=== PATIENT | female | born 1955 | race Hispanic/Latino ===

== ENCOUNTER 2016-06-20 13:00 | Inpatient (IN) | payer BC ==
[2016-06-20] MEDS ORDERED: Morphine 4 mg/ml ISec ONE ×2 (13:27→13:40)
--- NOTE | 2016-06-20 13:27 | ED PDOC ---
Arrival/HPI - General Chief Complaint: Upper Extremity Problem/Injury Time Seen by Provider: 06/20/16 13:16 Historian: Patient - History of Present Illness Narrative History of Present Illness (Text): 06/20/16 13:26 A 61 year old female, whose past medical history includes hypertension and hyperlipidemia, presents to the emergency department complaining of severe bilateral arm pain since last night. Patient reports her pain worsened this morning causing her to come in for further evaluation. Patient denies any relieving or exacerbating factors. Patient denies any fever, chills, nausea, vomiting, abdominal pain, chest pain, shortness of breath, cough or any other complaints. PMD: Dr. To Time/Duration: Other (Last night) Symptom Course: Worsening Quality: Other Context: Home Past Medical History - Provider Review Nursing Documentation Reviewed: Yes - Infectious Disease Hx of Infectious Diseases: None - Reproductive Menopause: Yes - Cardiac Hx Cardiac Disorders: Yes Hx Hypertension: Yes (BORDERLINE) - Pulmonary Hx Respiratory Disorders: Yes Hx Chronic Obstructive Pulmonary Disease (COPD): Yes Other/Comment: SMOKES CIGARETTES.STARTED SMOKING CIGARETTES SINCE 7 YRS OLD. ON CHIANTIX.STARTED 3 MONS AGO. - Neurological Hx Neurological Disorder: No - HEENT Hx HEENT Disorder: No - Renal Hx Renal Disorder: No - Endocrine/Metabolic Hx Endocrine Disorders: No - Hematological/Oncological Hx Blood Disorders: No - Integumentary Hx Dermatological Disorder: Yes (SCAR TO MID ABDOMINAL AREA FROM HERNIA SX) - Musculoskeletal/Rheumatological Hx Musculoskeletal Disorders: Yes Hx Falls: No Other/Comment: TRIGGER FINGER,PLANTAR FASCITIS - Gastrointestinal Hx Gastrointestinal Disorders: Yes Hx Diverticulitis: Yes (1-9-15) Other/Comment: HEMORRHOIDECTOMY,2 HERNIA REPAIR - Genitourinary/Gynecological Hx Genitourinary Disorders: No - Psychiatric Hx Psychophysiologic Disorder: No Hx Anxiety: No Hx Bipolar Disorder: No Hx Depression: No Hx Emotional Abuse: No Hx Hallucinations: No Hx Panic Disorder: No Hx Post Traumatic Stress Disorder: No Hx Psychosis: No Hx Physical Abuse: No Hx Schizophrenia: No Hx Sexual Abuse: No Hx Substance Use: No Other/Comment: SMOKES CIGARETTES SINCE 7 YRS OLD., ETOH SOCIALLY. - Surgical History Other/Comment: Hernia Repair.X2. - Anesthesia Hx Anesthesia: Yes Hx Anesthesia Reactions: No Hx Malignant Hyperthermia: No Family/Social History - Physician Review Nursing Documentation Reviewed: Yes Family/Social History: No Known Family HX Smoking Status: Current Some Days Smoker Hx Alcohol Use: Yes (SOCIAL DRINKER) Frequency of alcohol use: Socially Hx Substance Use: No Allergies/Home Meds Allergies/Adverse Reactions: Allergies adhesive Adverse Reaction (Verified 06/20/16 13:10) RASH hydromorphone [From Dilaudid] Adverse Reaction (Verified 06/20/16 13:10) URTICARIA Home Medications: Home Meds Medication Instructions Recorded Confirmed Varenicline [Chantix] 1 mg PO DAILY 02/23/15 06/20/16 Losartan Potassium [Cozaar] 100 mg PO DAILY 06/20/16 06/20/16 Simvastatin [Zocor] 20 mg PO HS 06/20/16 06/20/16 amLODIPine [Norvasc] 5 mg PO BID 06/20/16 06/20/16 Review of Systems - Physician Review All systems were reviewed & negative as marked: Yes - Review of Systems Constitutional: absent: Fevers, Night Sweats Respiratory: absent: SOB, Cough Cardiovascular: absent: Chest Pain Gastrointestinal: absent: Abdominal Pain, Nausea, Vomiting Musculoskeletal: Other (Bilateral arm pain) Physical Exam Vital Signs Reviewed: Yes Vital Signs Temp Pulse Pulse Resp BP BP Pulse Ox 06/20/16 13:40 97 H 20 118/77 100 06/20/16 13:30 108 H 20 123/88 100 06/20/16 13:20 98 H 20 141/98 H 100 06/20/16 13:17 109 H 173/81 H 06/20/16 13:16 100 H 18 173/81 H 100 06/20/16 13:03 98.2 F 85 20 158/115 H 99 Temperature: Afebrile Blood Pressure: Hypertensive Pulse: Regular Respiratory Rate: Normal Appearance: Positive for: Non-Toxic, Uncomfortable Pain Distress: Severe Mental Status: Positive for: Alert and Oriented X 3 - Systems Exam Head: Present: Atraumatic, Normocephalic Pupils: Present: PERRL Extroacular Muscles: Present: EOMI Conjunctiva: Present: Normal Mouth: Present: Moist Mucous Membranes Neck: Present: Normal Range of Motion Respiratory/Chest: Present: Clear to Auscultation, Good Air Exchange. No: Respiratory Distress, Accessory Muscle Use Cardiovascular: Present: Regular Rate and Rhythm, Normal S1, S2. No: Murmurs Abdomen: Present: Normal Bowel Sounds. No: Tenderness, Distention, Peritoneal Signs Back: Present: Normal Inspection Upper Extremity: Present: Normal Inspection, Normal ROM, NORMAL PULSES, Neurovascularly Intact. No: Cyanosis, Edema Lower Extremity: Present: Normal Inspection. No: Edema Neurological: Present: GCS=15, CN II-XII Intact, Speech Normal Skin: Present: Warm, Dry, Normal Color. No: Rashes Psychiatric: Present: Alert, Oriented x 3, Normal Insight, Normal Concentration Medical Decision Making ED Course and Treatment: 06/20/16 13:26 Impression: A 61 year old female with bilateral arm pain Plan: -- EKG -- Labs -- Aspirin, Plavix, Heparin and Morphine -- Reassess and disposition Progress Notes: Code heart called at 13:25 Concerning initial EKG, subsequent 12 leads revealed STEMI. Initial EKG at 13:18 shows NSR at 110 BPM. Interpreted by me. Second EKG at 13:21 shows NSR at 107 BPM with hyperacute T-waves noted in lead IV, questionable ST-segment elevations in V1-V2 Final EKG at 13:24 shows NSR at [address] elevations in V1-V4 06/20/16 13:[address] Baldwin 06/20/16 15:00 Patient transferred to orthodontic laboratory technician at 13:42. Dr. Jeong was in ED and now in orthodontic laboratory technician waiting for patient. - Critical Care Critical Care Minutes: 30 minutes - Lab Interpretations Lab Results: 06/20/16 13:32 06/20/16 13:32 Lab Results 06/20/16 13:32: Sodium 136, Potassium 4.3, Chloride 97 L, Carbon Dioxide 27, Anion Gap 16, BUN 15, Creatinine 0.8, Est GFR ( Amer) > 60, Est GFR (Non- Af Amer) > 60, Random Glucose 92, Calcium 9.4, Total Bilirubin 0.7, AST 25, ALT 33, Alkaline Phosphatase 84, Lactate Dehydrogenase 437, Total Creatine Kinase 57 , Troponin I 0.19 H* D, Total Protein 8.2, Albumin 4.5, Globulin 3.7, Albumin/ Globulin Ratio 1.2 06/20/16 13:32: PT 10.4, INR 0.96 06/20/16 13:32: WBC 13.4 H D, RBC 5.18, Hgb 17.2 H, Hct 48.6 H, MCV 93.8, MCH 33.2, MCHC 35.4, RDW 12.4, Plt Count 329, MPV 8.6, Gran % 66.9, Lymph % (Auto) 25.6, [place] % (Auto) 5.6, Eos % (Auto) 1.3 L, Baso % (Auto) 0.6, Gran # 8.97 H, Lymph # 3.4, [place] # 0.8 H, Eos # 0.2, Baso # 0.08 I have reviewed the lab results: Yes - Medication Orders Current Medication Orders: Acetaminophen (Tylenol 325mg Tab) 650 mg PO Q6H PRN PRN Reason: Fever >100.4 F Alprazolam (Xanax) 0.25 mg PO TID [facility] Stop: 06/27/16 18:01 Aspirin (Aspirin Chewable) 81 mg PO DAILY [facility] Atorvastatin Calcium (Lipitor) 80 mg PO DIN [facility] Clopidogrel Bisulfate (Plavix) 75 mg PO DAILY [facility] Docusate Sodium (Colace) 100 mg PO BID [facility] Sodium Chloride (Sodium Chloride 0.9%) 1,000 mls @ 100 mls/hr IV .Q10H [facility] Stop: 06/21/16 00:59 Losartan Potassium (Cozaar) 100 mg PO DAILY [facility] Metoprolol Tartrate (Lopressor) 25 mg PO BRKDIN [facility] Ondansetron HCl (Zofran Inj) 4 mg IVP Q6H PRN PRN Reason: Nausea/Vomiting Pantoprazole Sodium (Protonix Ec Tab) 40 mg PO 0630 [facility] Zolpidem Tartrate (Ambien) 5 mg PO HS PRN PRN Reason: Insomnia Discontinued Medications Aspirin (Aspirin) Confirm Administered Dose 325 mg .ROUTE .STK-MED ONE Stop: 06/20/16 13:28 Last Admin: 06/20/16 13:52 Dose: Aspirin (Aspirin) 325 mg PO STAT STA Stop: 06/20/16 13:27 Last Admin: 06/20/16 13:26 Dose: 325 mg Atropine Sulfate (Atropine) Confirm Administered Dose 1 mg .ROUTE .STK-MED ONE Stop: 06/20/16 13:37 Clopidogrel Bisulfate (Plavix) Confirm Administered Dose 600 mg .ROUTE .STK-MED ONE Stop: 06/20/16 13:29 Last Admin: 06/20/16 13:54 Dose: Clopidogrel Bisulfate (Plavix) 600 mg PO STAT STA Stop: 06/20/16 13:55 Last Admin: 06/20/16 13:25 Dose: 600 mg Eptifibatide (Integrilin Bolus) Confirm Administered Dose 40 mg IVP .STK-MED ONE Stop: 06/20/16 14:14 Fentanyl (Fentanyl) Confirm Administered Dose 100 mcg .ROUTE .STK-MED ONE Stop: 06/20/16 13:38 Heparin Sodium (Porcine) (Heparin) Confirm Administered Dose 5,000 units .ROUTE .STK-MED ONE Stop: 06/20/16 13:31 Last Admin: 06/20/16 13:53 Dose: Heparin Sodium (Porcine) (Heparin) 5,000 units IVP STAT STA PRN Reason: Protocol Stop: 06/20/16 13:27 Last Admin: 06/20/16 13:26 Dose: 5,000 units Heparin Sodium (Porcine) (Heparin) Confirm Administered Dose 10,000 units .ROUTE .STK-MED ONE Stop: 06/20/16 13:38 Nitroglycerin/Dextrose (Nitroglycerin 50 Mg/250 Ml D5w) Confirm Administered Dose 50 mg in 250 mls @ ud IV .STK-MED ONE Stop: 06/20/16 13:34 Last Admin: 06/20/16 13:33 Dose: 50 mg Nitroglycerin/Dextrose (Nitroglycerin 50 Mg/250 Ml D5w) Confirm Administered Dose 50 mg in 250 mls @ ud IV .STK-MED ONE Stop: 06/20/16 13:39 Last Admin: 06/20/16 14:03 Dose: Heparin Sodium (Porcine) (Heparin 1000 Units/500 Ml Ns) Confirm Administered Dose 1,500 mls @ ud IV .STK-MED ONE Stop: 06/20/16 13:39 Amiodarone HCl/Dextrose (Nexterone 360 Mg In D5w 200 Ml (Premix)) Confirm Administered Dose 360 mg in 200 mls @ ud IV .STK-MED ONE Stop: 06/20/16 14:03 Amiodarone HCl/Dextrose (Nexterone 150 Mg In Dextrose 100 Ml (Premix)) Confirm Administered Dose 150 mg in 100 mls @ ud .ROUTE .STK-MED ONE Stop: 06/20/16 14:03 Eptifibatide (Integrilin) Confirm Administered Dose 75 mg in 100 mls @ ud IV .STK-MED ONE Stop: 06/20/16 14:14 Iodixanol (Visipaque 320 Mg/Ml 100 Ml) Confirm Administered Dose 100 ml IV .STK- MED ONE Stop: 06/20/16 13:39 Iodixanol (Visipaque 320 Mg/Ml 200 Ml) Confirm Administered Dose 200 ml IV .STK- MED ONE Stop: 06/20/16 13:39 Iodixanol (Visipaque 320 Mg/Ml 100 Ml) Confirm Administered Dose 100 ml IV .STK- MED ONE Stop: 06/20/16 14:30 Iohexol (Omnipaque 350mg/Ml 50 Ml) Confirm Administered Dose 50 ml .ROUTE .STK- MED ONE Stop: 06/20/16 13:39 Lidocaine HCl (Lidocaine 2% 20ml Vial) Confirm Administered Dose 20 ml .ROUTE .STK-MED ONE Stop: 06/20/16 13:38 Midazolam HCl (Versed Inj) Confirm Administered Dose 2 mg .ROUTE .STK-MED ONE Stop: 06/20/16 13:38 Midazolam HCl (Versed Inj) Confirm Administered Dose 2 mg .ROUTE .STK-MED ONE Stop: 06/20/16 14:03 Morphine Sulfate (Morphine) Confirm Administered Dose 4 mg .ROUTE .STK-MED ONE Stop: 06/20/16 13:28 Last Admin: 06/20/16 13:57 Dose: Morphine Sulfate (Morphine) 4 mg IVP STAT STA Stop: 06/20/16 13:32 Last Admin: 06/20/16 13:31 Dose: 4 mg Morphine Sulfate (Morphine) 4 mg IVP STAT STA Stop: 06/20/16 13:40 Last Admin: 06/20/16 13:40 Dose: 4 mg Morphine Sulfate (Morphine) Confirm Administered Dose 4 mg .ROUTE .STK-MED ONE Stop: 06/20/16 13:41 Last Admin: 06/20/16 13:59 Dose: Phenylephrine HCl (Phenylephrine Inj) Confirm Administered Dose 10 mg .ROUTE .STK-MED ONE Stop: 06/20/16 13:38 - Scribe Statement The provider has reviewed the documentation as recorded by the Scribe Tri [place]antoja Provider Scribe Attestation: All medical record entries made by the Scribe were at my direction and personally dictated by me. I have reviewed the chart and agree that the record accurately reflects my personal performance of the history, physical exam, medical decision making, and the department course for this patient. I have also personally directed, reviewed, and agree with the discharge instructions and disposition. Disposition/Present on Arrival - Present on Arrival Any Indicators Present on Arrival: No History of DVT/PE: No History of Uncontrolled Diabetes: No Urinary Catheter: No History of Decub. Ulcer: No History Surgical Site Infection Following: None - Disposition Have Diagnosis and Disposition been Completed?: Yes Diagnosis: STEMI (ST elevation myocardial infarction) Disposition: HOSPITALIZED Disposition Time: 13:42 Patient Plan: Admission Condition: CRITICAL
[2016-06-20] MEDS ORDERED: Morphine 4 mg/ml ISec IVP STA ×2 (13:31→13:39)
[2016-06-20 13:33] LABS: ADD MANUAL DIFF? NO; BASO # 0.08 [, K/mm3] (0.0-2.0); BASO % 0.6 % (0.0-3.0); EOS # 0.2 (0.0-0.7); EOS % 1.3 % (1.5-5.0); GRAN # 8.97 (1.4-6.5); GRAN % 66.9 % (50.0-68.0); HEMATOCRIT 48.6 % (36.0-48.0); LYMPH # 3.4 (1.2-3.4); LYMPH % 25.6 % (22.0-35.0); MEAN CELL VOLUME 93.8 fL (80.0-105.0); MEAN CORPUSCULAR HEMOGLOBIN 33.2 pg (25.0-35.0); MEAN CORPUSCULAR HGB CONC 35.4 g/dl (31.0-37.0); MEAN PLATELET VOLUME 8.6 fl (7.0-11.0); MONO # 0.8 (0.1-0.6); MONO % 5.6 % (1.0-6.0); PLATELET COUNT 329 [, 10^3/uL] (120.0-450.0); RED CELL DISTRIBUTION WIDTH 12.4 % (11.5-14.5); WHITE BLOOD COUNT 13.4 [, 10^3/ul] (4.5-11.0)
[2016-06-20] MEDS ORDERED: Nitroglycerin 50mg in D5W 50 MG/250 ML BOTTLE IV ONE ×2 (13:33→13:38)
[2016-06-20] MEDS ORDERED: Phenylephrine 10 mg/ml Inj ONE (13:37)
[2016-06-20] MEDS ORDERED: Midazolam 2 MG/2 ML VIAL ONE ×2 (13:37→14:02)
[2016-06-20] MEDS ORDERED: Lidocaine 2% Inj (20ml) ONE (13:37)
[2016-06-20] MEDS ORDERED: Iodixanol 320 MG/ML 200 ML BOTTLE IV ONE (13:38)
[2016-06-20] MEDS ORDERED: Iodixanol 320 MG/ML 100 ML BOTTLE IV ONE ×2 (13:38→14:29)
[2016-06-20] MEDS ORDERED: Iohexol 350mgl/ml 50 ML ONE (13:38)
[2016-06-20 13:39] LABS: INR 0.96 (0.93-1.08)
[2016-06-20 13:41] LABS: ALB/GLOB RATIO 1.2 (1.1-1.8); ALKALINE PHOSPHATASE 84 U/L (38-133); ALT/SGPT 33 U/L (7-56); AST/SGOT 25 U/L (15-39); BILIRUBIN,TOTAL 0.7 mg/dL (0.2-1.3); BLOOD UREA NITROGEN 15 mg/dL (7-21); CALCIUM 9.4 mg/dL (8.4-10.5); CARBON DIOXIDE 27 mmol/L (21-33); CHLORIDE 97 mmol/L (98-107); GFR AFRICAN-AMERICAN > 60; GLUCOSE,RANDOM 92 mg/dL (70-110); POTASSIUM 4.3 mmol/L (3.6-5.0); SODIUM 136 mmol/L (132-148); TOTAL PROTEIN 8.2 g/dL (5.8-8.3)
--- NOTE | 2016-06-20 13:51 | CP.PCM.PN ---
Subjective - Date & Time of Evaluation Date of Evaluation: 06/20/16 Time of Evaluation: 13:48 - Subjective Subjective: Code Heart Responded stat to code heart in ER. Patient was noted to have an acute RI after initial treatment in the ED. She was transferred to the dental lab technician by ER team, Resident (Geri Le) and myself. Patient was already on secured entrance monitor and oxygen during the transfer. Dr. Jeong was already in the dental lab technician preparing for the procedure. Objective - Vital Signs/Intake and Output Vital Signs (last 24 hours): Temp Pulse Resp BP Pulse Ox 98.2 F 97 H 20 123/88 100 06/20/16 13:03 06/20/16 13:38 06/20/16 13:38 06/20/16 13:38 06/20/16 13:38 - Medications Medications: Current Medications Morphine Sulfate (Morphine) 4 mg IVP STAT STA Stop: 06/20/16 13:40 - Labs Labs: 06/20/16 13:32 06/20/16 13:32 PT 10.4 Seconds (9.9-11.8) 06/20/16 13:32 INR 0.96 (0.93-1.08) 06/20/16 13:32
[2016-06-20 13:54] LABS: TROPONIN I 0.19 ng/mL
[2016-06-20] MEDS ORDERED: D5W IV ONE (14:02)
[2016-06-20] MEDS ORDERED: Amiodarone 150 mg/D5W 100 ml 0 MG/0 ML BAG ONE (14:02)
[2016-06-20] MEDS ORDERED: AMIODARONE IV ONE (14:02)
[2016-06-20] MEDS ORDERED: Eptifibatide 0.75 mg/ml 75 MG/100 ML BOTTLE IV ONE (14:13)
[2016-06-20] MEDS ORDERED: Eptifibatide 20 mg/10mL Inj IVP ONE (14:13)
[2016-06-20] MEDS ORDERED: Sodium Chloride 0.9% 1,000 ML IV SCH (15:00)
--- NOTE | 2016-06-20 15:27 | CARD ---
APPROVED REPORT EKG Measurement Heart [id number] <Conclusion> Sinus tachycardia Possible Left atrial enlargement Low voltage QRS Inferior infarct, age undetermined Consider early injury patteren in the anterior leads Abnormal ECG
--- NOTE | 2016-06-20 15:30 | CARD ---
APPROVED REPORT EKG Measurement Heart [id number] <Conclusion> Sinus tachycardia Possible Left atrial enlargement Low voltage QRS Inferior infarct, age undetermined Abnormal ECG
--- NOTE | 2016-06-20 15:41 | HP ---
HISTORY OF PRESENT ILLNESS: The patient is a 61-year-old who was just seen in office with a complain t of chest pain and both shoulders, left more than the right, did not have any left-sided chest pain, but she states this is a strange kind of pain and she was literally crying in office since she has a lot of comorbidities including hyperlipidemia, hypertension, and active smoker for last 50 years, re ferred her to Emergency Room for further evaluation to rule out myocardial infarction. The patient w as seen by ER physician. She has ST elevation, code heart was called and patient was sent to cath la b. Dr. Jeong is doing the procedure. SIGNIFICANT PAST MEDICAL HISTORY: 1. Hypertension. 2. Hyperlipidemia. 3. Active smoker, almost 1-2 pack for the last 40-45 years. I have told her on multiple occasions t o quit smoking, but she states it is very hard. She was given Nicoderm patch and Nicorette gum and melody man was given Chantix. At one point, she quit but went back because she has a lot of stress with her daughter who has sick baby. The patient recently was evaluated by me because she wanted to have left hip replacement done and she came to me after many months for medical clearance. I sent her for a basic blood work that shows ve ry high cholesterol. Her total cholesterol was 236 with LDL of 143. The patient was started on Lipi tor, but she was complaining of lot of body aches and pain. She took for 3 days, Wednesday, Wednesday, . she called me, it was stopped and she was recently diagnosed with hypertension. S he was started on losartan 100 mg daily. She was evaluated by cigar head perforator who started on Norvasc. She also has history of COPD. ALLERGIES: ADHESIVES AND HYDROMORPHONE. She also has a history of diverticulosis, she has multiple admissions for diverticulitis. MEDICATIONS AT HOME: She is on losartan 100 mg daily, Zocor 20 mg at bedtime, Norvasc 5 mg twice a d ay and she has been on Chantix off and on. REVIEW OF SYSTEMS: Complaining of chest pain, bilateral shoulder and arm pain, left more than the ri ght. PHYSICAL EXAMINATION: GENERAL: The patient is awake and alert, communicative. VITAL SIGNS: She is afebrile, pulse 85, respirations 20, blood pressure 158/115. LUNGS: Bilateral fair airflow, no rhonchi or crackle. HEART: S1, S2 audible. ABDOMEN: Soft, nontender, no rebound, no guarding. NEUROLOGIC: The patient is awake and alert, communicative, ambulatory. LABORATORY DATA: WBC is 13.4, hemoglobin 17, hematocrit 48, platelet of 329. PT 10.4, INR 0.96. Ch emistry: Sodium 136, potassium 4.3, chloride 97, CO2 27, BUN 15, creatinine 0.8, blood sugar of 92, troponin 0.19. ASSESSMENT AND PLAN: 1. Acute myocardial infarction. The patient was taken to cardiac catheterization lab and still in c ath lab. 2. Hypertension. 3. Hyperlipidemia. 4. Active heavy smoker for many, many years. PLAN: The patient is will be admitted, having emergency cardiac catheterization done and she will be admitted post-procedure in ICU where she will be monitored closely. Gladys To MD cc: [id number] TT: 06/20/2016 15:40:45 jn
--- NOTE | 2016-06-20 15:52 | CON ---
DATE: 06/20/2016 REASON FOR CONSULTATION: Acute myocardial infarction. REQUESTING PHYSICIAN: Dr. To. HISTORY OF PRESENT ILLNESS: This is a 61-year-old woman with no significant past cardiac history, ho wever, a history of hypertension, hyperlipidemia and tobacco abuse who presents to the Emergency Room with severe chest discomfort and bilateral arm pain. Upon further discussion with her significant o ther, he states that she has been having symptoms like this for several weeks. In the Emergency Room , her electrocardiogram initially showed no acute abnormalities; however, follow up cardiogram showed clear ST elevations across the precordium. Emergency catheterization was recommended. She denies a ny prior cardiac history. She does have a history of hypertension and hyperlipidemia. She does have significant arthritis and has been a smoker for many years. She was recently being evaluated for po ssible hip replacement surgery. PAST MEDICAL HISTORY: Notable for the problems mentioned above. She has a history of diverticulitis in the past as well. She has had prior hernia repairs performed. MEDICATIONS AT HOME: Included Chantix, losartan 100 mg daily, amlodipine 5 mg b.i.d. and simvastatin 20 mg daily. ALLERGIES: SHE REPORTEDLY HAD A REACTION TO HYDROMORPHONE IN THE PAST. SOCIAL HISTORY: She is a smoker for many years. She denies alcohol use. FAMILY HISTORY: Both parents are from age-related illness. There is no family history of p remature heart disease. REVIEW OF SYSTEMS: Ten point review of systems is otherwise unremarkable. PHYSICAL EXAMINATION: GENERAL: She is an extremely anxious appearing, middle-aged woman. VITAL SIGNS: Blood pressure is 140/80 with a pulse of 110, respirations are 30. She is afebrile. HEENT: Normocephalic, atraumatic. NECK: Supple, no JVD noted. CHEST: Bilateral scattered rhonchi heard. HEART: PMI displaced laterally. No pathologic murmur or gallops noted. ABDOMEN: Soft, nontender, normoactive bowel sounds. EXTREMITIES: No edema. Distal pulses are 1+ bilaterally. SKIN: Warm and dry. PSYCHIATRIC: Moderate anxiety, but otherwise normal mood and affect. NEUROLOGIC: Alert and oriented x 3. No gross motor or sensory deficits appreciable. DIAGNOSTIC DATA: White count 13.4, hemoglobin and hematocrit 17.2 and 48.6 with platelet count of 32 9,000. Potassium 4.3. BUN and creatinine are 15 and 0.8. Initial troponin was 0.19. Electrocardiog dale reveals sinus rhythm with ST elevations across the precordium. Chest x-ray is pending. IMPRESSION: 1. Acute anterior myocardial infarction. 2. History of hypertension, hyperlipidemia and tobacco abuse. 3. Rest of problems as noted. RECOMMENDATIONS: The patient will be brought emergently to the catheterization lab and undergo emerg ency catheterization. Assuming a suitable lesion is found, emergency percutaneous coronary intervent ion will be performed as well. Risks and benefits have been discussed with the patient as well. The patient has been loaded with aspirin and Plavix as well as IV heparin. Further plans will be made b ased upon clinical course and results of the above findings. Thank you for this consultation. I am happy to follow along with her through her hospital course. Tomer Jeong MD cc: [id number] TT: 06/20/2016 15:51:08 Confirmation # [id number] Dictation # [id number] amanda
[2016-06-20] MEDS: Eptifibatide 0.75 mg/ml 75 MG/100 ML BOTTLE IV SCH (16:05)
--- NOTE | 2016-06-20 16:11 | CARDCATH ---
PROCEDURE DATE: 06/20/2016 HISTORY OF PRESENT ILLNESS: This is a 61-year-old woman with a history of hypertension, hyperlipidem ia and tobacco abuse who presents to the Emergency Room with bilateral arm pain and retrosternal ches t discomfort. Initial EKG was nondiagnostic; however, followup EKG with recurrent pain showed ST chava vations anteriorly. Emergency catheterization was advised. INDICATION: Acute myocardial infarction. PROCEDURES: 1. Selective left and right coronary angiography. 2. Left femoral arterial access as well as right femoral arterial access. 3. Left ventriculography. 4. PCI of mid and distal LAD with drug-eluting stents. 5. Right and left femoral arteriography. 6. Angio-Seal deployment x 2. HEMODYNAMICS: The aortic pressure was 90/60 with a left ventricular pressure 90/30. CORONARY ANATOMY: 1. The left main stem was normal. 2. Left anterior descending artery was large and tortuous. The vessel was occluded in the midportio n. 3. Left circumflex artery gave rise to 2 moderate sized obtuse marginal branches mild diffuse diseas e. 4. The right coronary artery was dominant and normal. LEFT VENTRICULOGRAPHY: A hand injection was performed in the left ventricle revealing evidence of se solitario distal anteroseptal and apical hypokinesis with overall ejection fraction of 45%. CURRENT INTERVENTION: 4000 units of intravenous heparin was administered and ACT was 300 seconds following administration. Attempts to advance the 35 EBU 6-[place] catheter up the right femoral iliac artery was not possible, despite the fact that diagnostic catheterization had passed there recently, there appeared to be ran dence of significant calcified plaque present. Access was then obtained via the right femoral artery . Following this, the catheter was successfully advanced and selectively engaged in left coronary ar ramiro. A [place] wire was taken and advanced into the LAD. This was able to pass through the occlusio n mid portion of the vessel and successfully reach the apex. Initial inflations in the mid portion w ere performed with a 2.5 mm x 12 mm balloon. Following this, there was evidence of diffuse complex 8 0% stenosis in the early distal segment of the vessel as well. This was also inflated with a 2.5 bal loon. Following this, the balloon catheter was removed and a 3.0 x 22 mm Resolute drug-eluting stent was advanced into the early distal segment of the LAD and inflated to 10 atmospheres. Following thi s, a 3.0 x 18 mm Resolute drug-eluting stent was advanced into the mid portion of the vessel and infl ated to 12 atmospheres. Following this, angiography showed evidence of a distal lesion at the edge o f the more distal stent. Intracoronary nitroglycerin was infused. However, this did not change the appearance, the wire was also withdrawn and the lesion remained. Given this, a 2.75 x 8 mm Resolute drug-eluting stent was advanced into this segment with overlap in the previously placed stent. This was inflated to 9 atmospheres. The balloon catheter was withdrawn to the overlap segment of the 2 st ents and inflated to 18 atmospheres. Following intervention 0% residual stenosis and ANNA grade III flow. IV Integrilin was administered. RIGHT FEMORAL ARTERIOGRAPHY: Right femoral arteriogram showed no evidence of significant disease and appropriate level of arterial puncture. The left femoral arteriogram was also performed showing the same. Both puncture sites were closed with deployment of an Angio-Seal device. CONCLUSION: Occluded left anterior descending with acute antral myocardial infarction. Successful s tenting of mid and early distal left anterior descending with drug-eluting stents as above. RECOMMENDATIONS: The patient will remain on IV Integrilin, be admitted to the CCU. Serial enzymes a nd electrocardiograms will be obtained. Smoking abstinence will be encouraged. Aspirin and Plavix t herapy will be administered. Beta kathy and statin therapy will be initiated as well. Further magdaleno ns will be made based upon clinical course. Tomer Jeong MD cc:Gladys To MD [id number] TT: 06/20/2016 16:10:54 jn
[2016-06-20 16:13] LABS: CHOLESTEROL 192 mg/dL (130-200)
[2016-06-20 17:13] VITALS: BMI 32.8
[2016-06-20] MEDS ORDERED: Pneumococcal 23-Valent Vaccine IM ONE (17:13)
[2016-06-20 17:34] LABS: HEMATOCRIT 44.6 % (36.0-48.0)
[2016-06-20] MEDS ORDERED: Sodium Chloride 0.9% 500 ML IV STA ×2 (18:00→18:05)
[2016-06-20] MEDS: Sodium Chloride 0.9% 1,000 ML IV SCH ×2 (18:42→22:37)
--- NOTE | 2016-06-20 19:18 | CON ---
DATE: 06/20/2016 REQUESTING PHYSICIAN: Dr. To. CHIEF COMPLAINT: The patient presented with upper extremity pain that radiated to her left arm and c hest. HISTORY OF PRESENT ILLNESS: The patient is a 61-year-old female with a history of hypertension, hype rlipidemia and COPD. The patient states that she has arthritis and has been having pain in both shou lders as well as her left hip. The patient developed left arm and chest pain today and went to her [facility] doctor, and was referred to the Emergency Room where it was noted that she was having a m yocardial infarction. The patient had a STEMI and emergently went to the metallurgical lab technician and received 2 genny nts in the LAD. At this time, she is awake and alert, hemodynamically stable. The patient is on O2 via nasal cannula. No cough, no congestion, no fever or chills, no nausea or vomiting, no abdominal pain, no diarrhea, no present chest pain. PAST MEDICAL HISTORY: As above. ALLERGIES: SHE HAS ALLERGIES TO ADHESIVE TAPE AND DILAUDID. MEDICATIONS: Can be evaluated as per the nurses' intake form. SOCIAL HISTORY: The patient smokes cigarettes. She also drinks socially, but no drug abuse. FAMILY HISTORY: Noncontributory. REVIEW OF SYSTEMS: CONSTITUTIONAL: All negative. HEENT: All negative. RESPIRATORY: All negative. CARDIOVASCULAR: Did present with some left arm and some mild chest pain. GASTROINTESTINAL: All negative. MUSCULOSKELETAL: All negative. NEUROPSYCHIATRIC: All negative. HEMATOLOGIC: All negative. IMMUNOLOGIC: All negative. ENDOCRINE: All negative. INTEGRITY: All negative. PHYSICAL EXAMINATION: VITAL SIGNS: Her temperature is 98.2, her pulse is 85, respirations are 20, and BP is 158/80, O2 sat on oxygen support is 100%. HEAD: Atraumatic, normocephalic. EYES: Reactive to light. EARS, NOSE AND THROAT: Seem to be within normal limits. NECK: Supple. No JVD, no thyroid enlargement, no lymph nodes. HEART: Regular rate and rhythm. Normal S1, S2. LUNGS: Reveal good breath sounds bilaterally. ABDOMEN: Soft, nontender, normal bowel sounds. No organomegaly noted. GENITALIA AND RECTAL: Deferred. MUSCULOSKELETAL: Note that the patient does have a hematoma in the left groin where the catheter for the cardiac catheterization was introduced. EXTREMITIES: Reveal no lower extremity edema. NEUROLOGIC: She seemed to be grossly intact. LABORATORY DATA: As far as her laboratories are concerned: Her white count is 13.4, hemoglobin 17.2 , hematocrit 48.6 with platelets of 329,000. Sodium is 136, potassium 4.3, chloride 97, CO2 of 27 wi th a BUN of 15, creatinine of 0.8, and a glucose of 92. IMPRESSION: This patient has acute myocardial infarction; it seems to be an anterior wall and is sta tus post cardiac catheterization with the placement of 2 left anterior descending stents. The patien t has a history of hypertension, hyperlipidemia, and chronic obstructive pulmonary disease as well as arthritis. Also, it is noted that she has a hematoma in the left groin area. PLAN: We will continue with aspirin and Colace, as well as Cozaar, Lipitor and Lopressor. The patie nt will be getting a Nicoderm patch and will continue with Plavix and Protonix. She is on O2 via lorna al cannula. Will continue with aggressive pulmonary toilet and we will follow her hemoglobin closely . The patient will be followed by cardiology closely as well, and we will continue to treat moreno vigil along with the other consultants and the primary care doctor. Leif Medrano MD cc: [id number] TT: 06/20/2016 19:17:18 Confirmation # [id number] Dictation # [id number] karen
[2016-06-20] MEDS ORDERED: Morphine 2 mg/ml ISec IVP STA (20:30)
[2016-06-20 22:08] LABS: TROPONIN I 2.1 ng/mL
[2016-06-21] MEDS: Eptifibatide 0.75 mg/ml 75 MG/100 ML BOTTLE IV SCH (00:21)
[2016-06-21 00:36] LABS: ADD MANUAL DIFF? NO
[2016-06-21 00:39] LABS: BASO # 0.06 [, K/mm3] (0.0-2.0); BASO % 0.4 % (0.0-3.0); EOS # 0.1 (0.0-0.7); EOS % 0.6 % (1.5-5.0); GRAN # 11.27 (1.4-6.5); GRAN % 74.9 % (50.0-68.0); LYMPH # 2.7 (1.2-3.4); LYMPH % 18.2 % (22.0-35.0); MEAN CELL VOLUME 94.5 fL (80.0-105.0); MEAN CORPUSCULAR HEMOGLOBIN 32.6 pg (25.0-35.0); MEAN CORPUSCULAR HGB CONC 34.5 g/dl (31.0-37.0); MEAN PLATELET VOLUME 8.5 fl (7.0-11.0); MONO # 0.9 (0.1-0.6); MONO % 5.9 % (1.0-6.0); PLATELET COUNT 255 [, 10^3/uL] (120.0-450.0); RED CELL DISTRIBUTION WIDTH 12.4 % (11.5-14.5)
[2016-06-21] MEDS: Morphine 2 mg/ml ISec IVP PRN (02:50)
[2016-06-21 03:33] LABS: ADD MANUAL DIFF? NO
[2016-06-21 03:38] LABS: BASO # 0.05 [, K/mm3] (0.0-2.0); BASO % 0.4 % (0.0-3.0); EOS # 0.2 (0.0-0.7); EOS % 1.3 % (1.5-5.0); GRAN # 8.76 (1.4-6.5); GRAN % 74.9 % (50.0-68.0); HEMATOCRIT 38.3 % (36.0-48.0); LYMPH # 2.1 (1.2-3.4); LYMPH % 17.9 % (22.0-35.0); MEAN CELL VOLUME 95.3 fL (80.0-105.0); MEAN CORPUSCULAR HEMOGLOBIN 33.3 pg (25.0-35.0); MEAN PLATELET VOLUME 8.5 fl (7.0-11.0); MONO # 0.6 (0.1-0.6); MONO % 5.5 % (1.0-6.0); PLATELET COUNT 250 [, 10^3/uL] (120.0-450.0); RED CELL DISTRIBUTION WIDTH 12.5 % (11.5-14.5); WHITE BLOOD COUNT 11.7 [, 10^3/ul] (4.5-11.0)
[2016-06-21 03:53] LABS: BLOOD UREA NITROGEN 11 mg/dL (7-21); CALCIUM 7.9 mg/dL (8.4-10.5); CARBON DIOXIDE 27 mmol/L (21-33); CHLORIDE 103 mmol/L (98-107); GFR AFRICAN-AMERICAN > 60; GLUCOSE,RANDOM 88 mg/dL (70-110); POTASSIUM 3.9 mmol/L (3.6-5.0); SODIUM 135 mmol/L (132-148)
[2016-06-21 04:20] LABS: TROPONIN I 2.04 ng/mL
[2016-06-21] MEDS ORDERED: Pantoprazole 40 mg EC Tab PO SCH (06:30)
--- NOTE | 2016-06-21 07:20 | CT ---
PROCEDURE: CT Abdomen and Pelvis without intravenous contrast HISTORY: r/o retro bleed COMPARISON: None. TECHNIQUE: Technique. Contrast Dose: Radiation dose: Total exam DLP = 1217 mGy-cm. This CT exam was performed using one or more of the following dose reduction techniques: Automated exposure control, adjustment of the mA and/or kV according to patient size, and/or use of iterative reconstruction technique. FINDINGS: LOWER THORAX: Minimal bibasilar subpleural atelectatic change. LIVER: Unremarkable. No gross lesion or ductal dilatation. GALLBLADDER AND BILE DUCTS: Vicarious excretion of contrast in the gallbladder suggested. PANCREAS: Unremarkable. No gross lesion or ductal dilatation. SPLEEN: Unremarkable. ADRENALS: Unremarkable. No mass. KIDNEYS AND URETERS: Left renal cysts measuring up to 5 centimeters. VASCULATURE: Unremarkable. No aortic aneurysm. BOWEL: Colonic diverticulosis without obstruction. APPENDIX: Unremarkable. Normal appendix. PERITONEUM: Unremarkable. No free fluid. No free air. LYMPH NODES: Unremarkable. No enlarged lymph nodes. BLADDER: Unremarkable. REPRODUCTIVE: Unremarkable. BONES: No acute fracture. OTHER FINDINGS: Extensive infiltration in the left groin likely secondary to recent catheterization. This probably represents subcutaneous fat hemorrhage. IMPRESSION: Extensive edema and infiltration in the left groin likely related to hemorrhage/hematoma from prior catheterization.
[2016-06-21] MEDS ORDERED: Metoprolol Succinate 25 mg XL Tab PO SCH (08:00)
--- NOTE | 2016-06-21 08:17 | PN ---
DATE: 06/21/2016 SUBJECTIVE: The patient is resting in bed, still complains of lower back pain and left thigh and mohsen in pain. The patient was fairly hemodynamically stable during the night, is off all pressors, O2 via nasal cannula and good O2 saturation. No chest pain. No nausea, vomiting. No diarrhea, no abdomin al pain. No cough, wheezing or congestion. PHYSICAL EXAMINATION: VITAL SIGNS: Her temperature is 98.3, pulse is 80, respirations are 18, and BP is 114/70. SKIN: Warm and dry. HEAD: Atraumatic, normocephalic. EYES: Reactive to light. EARS, NOSE AND THROAT: Seem to be within normal limits. NECK: Supple. No JVD, no thyroid enlargement, no lymph nodes. HEART: Has a regular rate and rhythm. Normal S1, S2. LUNGS: Reveal good breath sounds, but mildly decreased at the bases. ABDOMEN: Soft. Decreased bowel sounds. No organomegaly noted. GENITALIA AND RECTAL: Deferred. MUSCULOSKELETAL: The patient has a hematoma and swelling in the left thigh and hip area. Lower extr emities, no edema. NEUROLOGIC: She seemed to be grossly intact. LABORATORIES: Her white count is 11.7, hemoglobin is 13.4, hematocrit 38.3 with platelets of 250,000 . Sodium is 135, potassium 3.9, chloride 103, CO2 of 27 with a BUN of 11, creatinine of 0.7, and a g lucose of 88. A troponin this morning is 2.04. CT scan of the pelvis revealed that there is extensive edema and infiltrate in the left groin, likely related to hemorrhage/hematoma from prior catheterization. IMPRESSION: The patient has acute myocardial infarction, anterior wall and status post catheterizati on with 2 stents placed. The patient has a history of hypertension, hyperlipidemia, chronic obstruct betsy pulmonary disease, also arthritis. She has hematoma in the left groin area. PLAN: We will continue with O2 via nasal cannula. The patient is on IV fluids. We are monitoring t he patient's blood pressure and other vitals closely. We will continue to follow recommendations fro m cardiology and continue with her Colace, her Cozaar, Lipitor and Lopressor as well as the Plavix an d the Protonix. She is getting aggressive pulmonary toilet and we are following the hemoglobin close ly. Leif Medrano MD cc: [id number] TT: 06/21/2016 08:16:42 Confirmation # [id number] Dictation # [id number] en
[2016-06-21 08:35] LABS: ADD MANUAL DIFF? NO
[2016-06-21] MEDS: Pantoprazole 40 mg EC Tab PO SCH (09:36)
[2016-06-21] MEDS: Sodium Chloride 0.9% 1,000 ML IV SCH (09:38)
[2016-06-21 09:44] LABS: BASO # 0.04 [, K/mm3] (0.0-2.0); BASO % 0.3 % (0.0-3.0); EOS # 0.1 (0.0-0.7); EOS % 0.9 % (1.5-5.0); GRAN # 12.73 (1.4-6.5); HEMATOCRIT 41.4 % (36.0-48.0); LYMPH # 1.7 (1.2-3.4); MEAN CELL VOLUME 95.6 fL (80.0-105.0); MEAN CORPUSCULAR HEMOGLOBIN 32.6 pg (25.0-35.0); MEAN CORPUSCULAR HGB CONC 34.1 g/dl (31.0-37.0); MEAN PLATELET VOLUME 8.9 fl (7.0-11.0); MONO # 0.7 (0.1-0.6); MONO % 4.8 % (1.0-6.0); PLATELET COUNT 266 [, 10^3/uL] (120.0-450.0); RED CELL DISTRIBUTION WIDTH 12.5 % (11.5-14.5); WHITE BLOOD COUNT 15.3 [, 10^3/ul] (4.5-11.0)
[2016-06-21 09:51] LABS: PHOSPHOROUS 3.1 mg/dL (2.5-4.5)
--- NOTE | 2016-06-21 09:57 | PN ---
DATE: 06/21/2016 SUBJECTIVE: The patient is seen lying in bed in the ICU. She has had no further chest or arm discom fort. She does have pain and tenderness at her femoral access site on the left. A large hematoma is present. Her hemoglobin has remained stable, and CT of the abdomen showed no evidence of retroperit [place] hematoma. She was found to have several large cysts in her left kidney measuring up to 5 cm in diameter. She did have transient hypotension last evening, which improved with IV fluids. CURRENT MEDICATIONS: Include aspirin, Plavix, losartan 100 mg daily, Lipitor 80 mg daily, metoprolol 25 mg b.i.d., morphine p.r.n., Nicoderm patch, Protonix, Xanax p.r.n. OBJECTIVE: GENERAL: She is an anxious-appearing middle-aged woman. VITAL SIGNS: Her blood pressure is 132/86 with a pulse of 100. Respirations are 16. She is afebril e. HEENT: No JVD. CHEST: Bilateral scattered rhonchi heard. HEART: PMI displaced laterally with no pathologic murmur or gallops noted at the present time. ABDOMEN: Soft, nontender with normoactive bowel sounds. EXTREMITIES: A large soft hematoma is noted on the right thigh and an inguinal region. No bruit is heard. Right femoral access site has minimal ecchymosis. Distal pulses are intact. DIAGNOSTIC DATA: BUN and creatinine are 11 and 0.7. Potassium is 3.9. Peak troponin is 2.10. Whit e count 11.7, hemoglobin and hematocrit 13.4 and 38.3 with a platelet count of 250,000. Abdominal CT report as noted. Electrocardiogram is pending. Chest x-ray is pending as well. IMPRESSION: 1. Hemodynamically stable status post recent acute antral myocardial infarction treated with percuta neous coronary intervention of left anterior descending. 2. Transient hypotension last evening, improved with IV fluids. 3. Large left renal cyst needs evaluation. 4. History of tobacco abuse. 5. History of hypertension, hyperlipidemia. 6. Severe hip arthritis. RECOMMENDATIONS: 1. Analgesia therapy should continue. Aspirin, Plavix, beta-kathy, and angiotensin receptor block er will be continued, as blood pressure allows. 2. Followup enzymes will be planned. 3. Abdominal ultrasound should be performed for further evaluation of her renal cysts. The patient will be gotten out of bed as tolerated. An echocardiogram is pending and will be checked. We will c amaris to follow along and make further recommendations as appropriate. Tomer Jeong MD cc: [id number] TT: 06/21/2016 09:57:03 Confirmation # [id number] Dictation # [id number] jn
[2016-06-21 10:09] LABS: TROPONIN I 1.33 ng/mL
--- NOTE | 2016-06-21 10:53 | RAD ---
HISTORY: [place] COMPARISON: No prior. FINDINGS: LUNGS: No active pulmonary disease. PLEURA: No significant pleural effusion identified, no pneumothorax apparent. CARDIOVASCULAR: Normal. OSSEOUS STRUCTURES: No significant abnormalities. VISUALIZED UPPER ABDOMEN: Normal. OTHER FINDINGS: None. IMPRESSION: No active disease.
--- NOTE | 2016-06-21 12:45 | CP.CCUPN ---
CCU Subjective - Physician Review Subjective (Free Text): 06/21/16 12:24 Patient seen and examined at bedside. Today is hospital day 2. Overnight, patient experienced a brief hypotensive episode to the 60's systolic which was resolved with a 500cc bolus of NS. Pressures have remained stable since. Was found to have a retroperitoneal hematoma on the left consistent with hematoma 2/ 2 cath procedure (cannulated on the left due to impeded access on the right) on CT abd/pelvis after the hypotensive episode. This AM, patient is awake and alert, not complaining of new or worsening pain. No progression of L groin hematoma or new incidence of hematoma, no lightheadedness/dizziness, no syncope- near/syncope, no new chest pain, and no shortness of breath. CCU Objective - Vital Signs / Intake & Output Vital Signs (Last 4 hours): Vital Signs Pulse BP 06/21/16 09:40 99 H 131/97 H Intake and Output (Last 8hrs): Intake & Output 06/20/16 06/21/16 06/21/16 22:59 06:59 14:59 Intake Total 982 2130 Output Total 300 950 Balance 682 1180 Weight 78.925 kg 85.366 kg Intake: IV 982 1500 Right Antecubital 0 Right Forearm 973 Right Hand 1500 Oral 630 Tube Feeding 0 TPN/PPN 0 Blood Product 0 Lipid 0 Albumin 0 Other 0 Output: Urine 300 950 Urine, Voided 300 950 Stool 0 Urine/Stool Mix 0 Emesis 0 Oral Regurgitation 0 Other 0 Other: Voiding Method Bedpan # Voids Urine, Voided 0 # Bowel Movements 0 - Medications Active Medications: Active Medications Generic Name Dose Route Start Last Admin Trade Name Freq PRN Reason Stop Dose Admin Acetaminophen 650 mg 06/20/16 17:29 06/20/16 22:35 Tylenol 325mg Tab PO 650 mg Q6H PRN Administration Fever >100.4 F Alprazolam 0.25 mg 06/20/16 18:00 06/21/16 09:36 Xanax PO 06/27/16 18:01 0.25 mg TID CECILE Administration Aspirin 81 mg 06/21/16 10:00 06/21/16 09:36 Aspirin Chewable PO 81 mg DAILY CECILE Administration Atorvastatin Calcium 80 mg 06/20/16 18:00 06/20/16 18:36 Lipitor PO Not Given DIN CECILE Clopidogrel Bisulfate 75 mg 06/21/16 10:00 06/21/16 09:34 Plavix PO 75 mg DAILY CECILE Administration Docusate Sodium 100 mg 06/20/16 18:00 06/21/16 09:37 Colace PO 100 mg BID CECILE Administration Norepinephrine Bitartrate 4 mg 254 mls @ 15.24 mls/hr 06/20/16 18:07 19:27 / Sodium Chloride IV 0 mcg/min .[id number] PRN 0 mls/hr TITRATE PER MD ORDER Titration Protocol 4 MCG/MIN Sodium Chloride 1,000 mls @ 125 mls/hr 06/20/16 18:30 06/21/16 09:38 Sodium Chloride 0.9% IV 125 mls/hr .Q8H CECILE Administration Losartan Potassium 100 mg 06/21/16 10:00 06/21/16 09:34 Cozaar PO 100 mg DAILY CECILE Administration Metoprolol Tartrate 50 mg 06/21/16 09:13 06/21/16 09:40 Lopressor PO 50 mg BRKDIN CECILE Administration Morphine Sulfate 2 mg 06/21/16 02:38 06/21/16 02:50 Morphine IVP 2 mg Q4H PRN Administration Pain, severe (8-10) Nicotine 1 patch 06/20/16 16:45 06/21/16 09:36 Nicoderm Cq TD 1 patch DAILY CECILE Administration Ondansetron HCl 4 mg 06/20/16 17:29 Zofran Inj IVP Q6H PRN Nausea/Vomiting Pantoprazole Sodium 40 mg 06/21/16 06:30 06/21/16 09:36 Protonix Ec Tab PO 40 mg 0630 CECILE Administration Zolpidem Tartrate 5 mg 06/20/16 22:42 Ambien PO HS PRN Insomnia - Patient Studies Lab Studies: Lab Studies 06/21/16 06/21/16 06/21/16 Range/Units 08:33 08:33 03:30 WBC 15.3 H D 11.7 H D (4.5-11.0) 10^3/ul RBC 4.33 4.02 (3.5-6.1) 10^6/uL Hgb 14.1 13.4 (12.0-16.0) gm/dL Hct 41.4 38.3 (36.0-48.0) % MCV 95.6 95.3 (80.0-105.0) fL MCH 32.6 33.3 (25.0-35.0) pg MCHC 34.1 35.0 (31.0-37.0) g/dl RDW 12.5 12.5 (11.5-14.5) % Plt Count 266 250 (120.0-450.0) 10^3/uL MPV 8.9 8.5 (7.0-11.0) fl Gran % 83.0 H 74.9 H (50.0-68.0) % Lymph % (Auto) 11.0 L 17.9 L (22.0-35.0) % Dewey % (Auto) 4.8 5.5 (1.0-6.0) % Eos % (Auto) 0.9 L 1.3 L (1.5-5.0) % Baso % (Auto) 0.3 0.4 (0.0-3.0) % Gran # 12.73 H 8.76 H (1.4-6.5) Lymph # 1.7 2.1 (1.2-3.4) Dewey # 0.7 H 0.6 (0.1-0.6) Eos # 0.1 0.2 (0.0-0.7) Baso # 0.04 0.05 (0.0-2.0) K/mm3 Sodium (132-148) mmol/L Potassium (3.6-5.0) mmol/L Chloride (98-107) mmol/L Carbon Dioxide (21-33) mmol/L Anion Gap (10-20) BUN (7-21) mg/dL Creatinine (0.5-1.4) mg/dL Est GFR ( Amer) Est GFR (Non-Af Amer) Random Glucose (70-110) mg/dL Calcium (8.4-10.5) mg/dL Phosphorus 3.1 (2.5-4.5) mg/dL Magnesium 2.0 (1.7-2.2) mg/dL Lactate Dehydrogenase 483 (333-699) U/L Total Creatine Kinase 104 (35-230) U/L Troponin I 1.33 H* D ng/mL Albumin 3.5 (3.0-4.8) g/dL Blood Type Blood Type Confirm Antibody Screen Crossmatch BBK History Checked 06/21/16 06/21/16 06/20/16 Range/Units 03:30 00:30 21:30 WBC 15.0 H (4.5-11.0) 10^3/ul RBC 4.02 (3.5-6.1) 10^6/uL Hgb 13.1 (12.0-16.0) gm/dL Hct 38.0 (36.0-48.0) % MCV 94.5 (80.0-105.0) fL MCH 32.6 (25.0-35.0) pg MCHC 34.5 (31.0-37.0) g/dl RDW 12.4 (11.5-14.5) % Plt Count 255 (120.0-450.0) 10^3/uL MPV 8.5 (7.0-11.0) fl Gran % 74.9 H (50.0-68.0) % Lymph % (Auto) 18.2 L (22.0-35.0) % Dewey % (Auto) 5.9 (1.0-6.0) % Eos % (Auto) 0.6 L (1.5-5.0) % Baso % (Auto) 0.4 (0.0-3.0) % Gran # 11.27 H (1.4-6.5) Lymph # 2.7 (1.2-3.4) Dewey # 0.9 H (0.1-0.6) Eos # 0.1 (0.0-0.7) Baso # 0.06 (0.0-2.0) K/mm3 Sodium 135 (132-148) mmol/L Potassium 3.9 (3.6-5.0) mmol/L Chloride 103 (98-107) mmol/L Carbon Dioxide 27 (21-33) mmol/L Anion Gap 9 L (10-20) BUN 11 (7-21) mg/dL Creatinine 0.7 (0.5-1.4) mg/dL Est GFR ( Amer) > 60 Est GFR (Non-Af Amer) > 60 Random Glucose 88 (70-110) mg/dL Calcium 7.9 L (8.4-10.5) mg/dL Phosphorus (2.5-4.5) mg/dL Magnesium (1.7-2.2) mg/dL Lactate Dehydrogenase 375 369 (333-699) U/L Total Creatine Kinase 124 96 (35-230) U/L Troponin I 2.04 H* 2.10 H* D ng/mL Albumin (3.0-4.8) g/dL Blood Type Blood Type Confirm Antibody Screen Crossmatch BBK History Checked 06/20/16 06/20/16 06/20/16 Range/Units 18:28 18:00 18:00 WBC (4.5-11.0) 10^3/ul RBC (3.5-6.1) 10^6/uL Hgb (12.0-16.0) gm/dL Hct (36.0-48.0) % MCV (80.0-105.0) fL MCH (25.0-35.0) pg MCHC (31.0-37.0) g/dl RDW (11.5-14.5) % Plt Count (120.0-450.0) 10^3/uL MPV (7.0-11.0) fl Gran % (50.0-68.0) % Lymph % (Auto) (22.0-35.0) % Dewey % (Auto) (1.0-6.0) % Eos % (Auto) (1.5-5.0) % Baso % (Auto) (0.0-3.0) % Gran # (1.4-6.5) Lymph # (1.2-3.4) Dewey # (0.1-0.6) Eos # (0.0-0.7) Baso # (0.0-2.0) K/mm3 Sodium (132-148) mmol/L Potassium (3.6-5.0) mmol/L Chloride (98-107) mmol/L Carbon Dioxide (21-33) mmol/L Anion Gap (10-20) BUN (7-21) mg/dL Creatinine (0.5-1.4) mg/dL Est GFR ( Amer) Est GFR (Non-Af Amer) Random Glucose (70-110) mg/dL Calcium (8.4-10.5) mg/dL Phosphorus (2.5-4.5) mg/dL Magnesium (1.7-2.2) mg/dL Lactate Dehydrogenase (333-699) U/L Total Creatine Kinase (35-230) U/L Troponin I 1.10 H* D ng/mL Albumin (3.0-4.8) g/dL Blood Type O POSITIVE Blood Type Confirm O POSITIVE Antibody Screen Negative Crossmatch See Detail BBK History Checked No verified bt 06/20/16 Range/Units 17:10 WBC (4.5-11.0) 10^3/ul RBC (3.5-6.1) 10^6/uL Hgb 15.5 (12.0-16.0) gm/dL Hct 44.6 (36.0-48.0) % MCV (80.0-105.0) fL MCH (25.0-35.0) pg MCHC (31.0-37.0) g/dl RDW (11.5-14.5) % Plt Count (120.0-450.0) 10^3/uL MPV (7.0-11.0) fl Gran % (50.0-68.0) % Lymph % (Auto) (22.0-35.0) % Dewey % (Auto) (1.0-6.0) % Eos % (Auto) (1.5-5.0) % Baso % (Auto) (0.0-3.0) % Gran # (1.4-6.5) Lymph # (1.2-3.4) Dewey # (0.1-0.6) Eos # (0.0-0.7) Baso # (0.0-2.0) K/mm3 Sodium (132-148) mmol/L Potassium (3.6-5.0) mmol/L Chloride (98-107) mmol/L Carbon Dioxide (21-33) mmol/L Anion Gap (10-20) BUN (7-21) mg/dL Creatinine (0.5-1.4) mg/dL Est GFR ( Amer) Est GFR (Non-Af Amer) Random Glucose (70-110) mg/dL Calcium (8.4-10.5) mg/dL Phosphorus (2.5-4.5) mg/dL Magnesium (1.7-2.2) mg/dL Lactate Dehydrogenase (333-699) U/L Total Creatine Kinase (35-230) U/L Troponin I ng/mL Albumin (3.0-4.8) g/dL Blood Type Blood Type Confirm Antibody Screen Crossmatch BBK History Checked Laboratory Results - last 24 hr 06/20/16 06/20/16 06/20/16 17:10 18:00 18:00 WBC RBC Hgb 15.5 Hct 44.6 MCV MCH MCHC RDW Plt Count MPV Gran % Lymph % (Auto) Dewey % (Auto) Eos % (Auto) Baso % (Auto) Gran # Lymph # Dewey # Eos # Baso # Sodium Potassium Chloride Carbon Dioxide Anion Gap BUN Creatinine Est GFR ( Amer) Est GFR (Non-Af Amer) Random Glucose Calcium Phosphorus Magnesium Lactate Dehydrogenase Total Creatine Kinase Troponin I 1.10 H* D Albumin Blood Type O POSITIVE Blood Type Confirm Antibody Screen Negative Crossmatch See Detail BBK History Checked No verified bt 06/20/16 06/20/16 06/21/16 18:28 21:30 00:30 WBC 15.0 H RBC 4.02 Hgb 13.1 Hct 38.0 MCV 94.5 MCH 32.6 MCHC 34.5 RDW 12.4 Plt Count 255 MPV 8.5 Gran % 74.9 H Lymph % (Auto) 18.2 L Dewey % (Auto) 5.9 Eos % (Auto) 0.6 L Baso % (Auto) 0.4 Gran # 11.27 H Lymph # 2.7 Dewey # 0.9 H Eos # 0.1 Baso # 0.06 Sodium Potassium Chloride Carbon Dioxide Anion Gap BUN Creatinine Est GFR ( Amer) Est GFR (Non-Af Amer) Random Glucose Calcium Phosphorus Magnesium Lactate Dehydrogenase 369 Total Creatine Kinase 96 Troponin I 2.10 H* D Albumin Blood Type Blood Type Confirm O POSITIVE Antibody Screen Crossmatch BBK History Checked 06/21/16 06/21/16 06/21/16 03:30 03:30 08:33 WBC 11.7 H D 15.3 H D RBC 4.02 4.33 Hgb 13.4 14.1 Hct 38.3 41.4 MCV 95.3 95.6 MCH 33.3 32.6 MCHC 35.0 34.1 RDW 12.5 12.5 Plt Count 250 266 MPV 8.5 8.9 Gran % 74.9 H 83.0 H Lymph % (Auto) 17.9 L 11.0 L Dewey % (Auto) 5.5 4.8 Eos % (Auto) 1.3 L 0.9 L Baso % (Auto) 0.4 0.3 Gran # 8.76 H 12.73 H Lymph # 2.1 1.7 Dewey # 0.6 0.7 H Eos # 0.2 0.1 Baso # 0.05 0.04 Sodium 135 Potassium 3.9 Chloride 103 Carbon Dioxide 27 Anion Gap 9 L BUN 11 Creatinine 0.7 Est GFR ( Amer) > 60 Est GFR (Non-Af Amer) > 60 Random Glucose 88 Calcium 7.9 L Phosphorus Magnesium Lactate Dehydrogenase 375 Total Creatine Kinase 124 Troponin I 2.04 H* Albumin Blood Type Blood Type Confirm Antibody Screen Crossmatch BBK History Checked 06/21/16 08:33 WBC RBC Hgb Hct MCV MCH MCHC RDW Plt Count MPV Gran % Lymph % (Auto) Dewey % (Auto) Eos % (Auto) Baso % (Auto) Gran # Lymph # Dewey # Eos # Baso # Sodium Potassium Chloride Carbon Dioxide Anion Gap BUN Creatinine Est GFR ( Amer) Est GFR (Non-Af Amer) Random Glucose Calcium Phosphorus 3.1 Magnesium 2.0 Lactate Dehydrogenase 483 Total Creatine Kinase 104 Troponin I 1.33 H* D Albumin 3.5 Blood Type Blood Type Confirm Antibody Screen Crossmatch BBK History Checked Assessment/Plan - Assessment and Plan (Free Text) Assessment: This is a 61 yo F with PMH of HTN, HLD, diverticulitis, and active tobacco abuse who was admitted to the ICU for STEMI s/p Cardiac cath complicated by post-cath retroperitoneal hematoma. Plan: Neuro: -awake and alert -follows commands appropriately, moving limbs spontaneously -maintain normothermia -Xanax for anxiety Pulm: -Satting well on room air -heavy tobacco use prior, so likely emphysema vs COPD component; Nicotene patch -maintain SaO2 > 88%, paO2 > 60 -Conservative O2 management -Aspiration precautions Cardio: -STEMI s/p cardiac cath, 3 LAD stents placed -obstructed access on R groin, access gained via L groin, post-procedure hematoma (resolved) and retroperitoneal hematoma noted, confirmed on CT scan -US to rule out pseudoaneurysm? -Hgb stable on q4 checks, retains pulses in bilateral LE -Continue ASA, Plavix, Metoprolol, Lipitor -Maintain MAP > 65, hemodynamically stable off pressors so holding Levophed at this time -Cardio following, appreciate all recs -Trops downtrending x2 (2.10 to 2.04 to 1.33) GI: -Consistent Carb heart healthy -Protonix for GI ppx Renal: -Making clear yellow urine -Cr 0.7 -maintain euvolemia and euglycemia (BG 140-180) -Monitor and replete electrolytes as needed -avoid nephrotoxic drugs where feasible -Abd US to assess renal cysts noted on CT Heme: -Hgb stable at 13-14 on q4 checks -No active bleeding noted at either cath sites -Retroperitoneal hematoma confirmed on Abd/Pelvis CT, continue to assess sites and peripheral pulses ID: -WBCs 15.3 to 13.7 -afebrile -continue to monitor -No abx indicated at this time Dispo: ICU, pending reassessment of retroperitoneal hematoma FEN: Consistent Carb heart healthy, NS at 125cc/hr Access: Peripheral IV Consults: Cardio Ppx: Protonix for GI, holding AC in the setting of retroperitoneal bleed
[2016-06-21 13:02] LABS: ADD MANUAL DIFF? NO
[2016-06-21 13:06] LABS: BASO # 0.03 [, K/mm3] (0.0-2.0); BASO % 0.2 % (0.0-3.0); EOS # 0.1 (0.0-0.7); GRAN # 10.76 (1.4-6.5); GRAN % 78.7 % (50.0-68.0); HEMATOCRIT 40.2 % (36.0-48.0); LYMPH % 14.8 % (22.0-35.0); MEAN CELL VOLUME 96.2 fL (80.0-105.0); MEAN CORPUSCULAR HEMOGLOBIN 32.5 pg (25.0-35.0); MEAN CORPUSCULAR HGB CONC 33.8 g/dl (31.0-37.0); MEAN PLATELET VOLUME 8.5 fl (7.0-11.0); MONO # 0.7 (0.1-0.6); MONO % 5.3 % (1.0-6.0); PLATELET COUNT 278 [, 10^3/uL] (120.0-450.0); RED CELL DISTRIBUTION WIDTH 12.7 % (11.5-14.5); WHITE BLOOD COUNT 13.7 [, 10^3/ul] (4.5-11.0)
--- NOTE | 2016-06-21 14:54 | CARD ---
APPROVED REPORT EKG Measurement Heart [id number] [place] 136P64 [id number] <Conclusion> Sinus rhythm with premature atrial complexes Otherwise normal ECG
--- NOTE | 2016-06-21 14:59 | CARD ---
APPROVED REPORT EKG Measurement Heart [id number] [place] [id number] [id number] <Conclusion> Sinus rhythm with occasional premature ventricular complexes Possible Left atrial enlargement Low voltage QRS Possible Inferior infarct, age undetermined Anterior injury pattern ACUTE PR Abnormal ECG
--- NOTE | 2016-06-21 15:45 | PN ---
DATE: 06/21/2016 The patient is 61 years old who was seen in the office yesterday with chest pain, so she was referred to the Emergency Room. Code stroke was called. The patient was taken to the center medical and lab director. She ended u p having 3 stents in the LAD and admitted in the ICU. Her cath was complicated by left leg hematoma. PHYSICAL EXAMINATION: GENERAL: She is awake and alert, communicative. VITAL SIGNS: She is afebrile. Pulse 88, respirations 19, blood pressure 140/60. LUNGS: Bilateral good airflow, no , rhonchi or crackle. HEART: S1, S2 audible. No murmur. ABDOMEN: Soft, nontender. No hepatosplenomegaly. NEUROLOGIC: She is awake and alert, communicative. EXTREMITIES: She has a hematoma in the left groin. ASSESSMENT: 1. Acute myocardial infarction, status post cardiac code heart. 2. Hypertension. 3. Hyperlipidemia. 4. Active smoker. 5. History of chronic obstructive pulmonary disease. PLAN: Currently, the patient is on aspirin 81 daily. She is on losartan. She is on Lipitor and met oprolol. She is getting nicotine. She is on Plavix and will continue that. She will have a Doppler done, and she will have Doppler done in the a.m. to rule out pseudoaneurysm, then she will be transf erred to the floor in the a.m. Gladys To MD cc: [phone] TT: 06/21/2016 15:44:38 Confirmation # [id number] Dictation # [id number] karen
[2016-06-21 16:35] LABS: ADD MANUAL DIFF? NO
[2016-06-21 17:14] LABS: TROPONIN I 0.93 ng/mL
[2016-06-21 17:21] LABS: BASO # 0.04 [, K/mm3] (0.0-2.0); BASO % 0.3 % (0.0-3.0); EOS # 0.2 (0.0-0.7); EOS % 1.1 % (1.5-5.0); GRAN # 10.12 (1.4-6.5); GRAN % 73.4 % (50.0-68.0); HEMATOCRIT 38.7 % (36.0-48.0); LYMPH # 2.6 (1.2-3.4); LYMPH % 18.6 % (22.0-35.0); MEAN CELL VOLUME 95.3 fL (80.0-105.0); MEAN CORPUSCULAR HEMOGLOBIN 32.3 pg (25.0-35.0); MEAN CORPUSCULAR HGB CONC 33.9 g/dl (31.0-37.0); MEAN PLATELET VOLUME 9.1 fl (7.0-11.0); MONO # 0.9 (0.1-0.6); MONO % 6.6 % (1.0-6.0); PLATELET COUNT 301 [, 10^3/uL] (120.0-450.0); RED CELL DISTRIBUTION WIDTH 12.6 % (11.5-14.5); WHITE BLOOD COUNT 13.8 [, 10^3/ul] (4.5-11.0)
[2016-06-22] MEDS: Morphine 2 mg/ml ISec IVP PRN ×2 (04:08→19:39)
[2016-06-22 05:41] LABS: ADD MANUAL DIFF? NO
[2016-06-22 06:27] LABS: BLOOD UREA NITROGEN 12 mg/dL (7-21); CALCIUM 8.5 mg/dL (8.4-10.5); CARBON DIOXIDE 27 mmol/L (21-33); CHLORIDE 106 mmol/L (98-107); GFR AFRICAN-AMERICAN > 60; GLUCOSE,RANDOM 89 mg/dL (70-110); PHOSPHOROUS 3.3 mg/dL (2.5-4.5); POTASSIUM 3.7 mmol/L (3.6-5.0); SODIUM 139 mmol/L (132-148)
[2016-06-22 06:37] LABS: WHITE BLOOD COUNT 11.8 [, 10^3/ul] (4.5-11.0)
[2016-06-22 06:38] LABS: GRAN % 72.2 % (50.0-68.0); MEAN CELL VOLUME 98.2 fL (80.0-105.0); MEAN CORPUSCULAR HGB CONC 32.6 g/dl (31.0-37.0); MEAN PLATELET VOLUME 9.1 fl (7.0-11.0); PLATELET COUNT 232 [, 10^3/uL] (120.0-450.0); RED CELL DISTRIBUTION WIDTH 12.5 % (11.5-14.5)
[2016-06-22 06:39] LABS: BASO # 0.05 [, K/mm3] (0.0-2.0); BASO % 0.4 % (0.0-3.0); EOS # 0.2 (0.0-0.7); EOS % 1.4 % (1.5-5.0); GRAN # 8.58 (1.4-6.5); LYMPH # 2.1 (1.2-3.4); LYMPH % 17.8 % (22.0-35.0); MONO % 8.2 % (1.0-6.0)
[2016-06-22] MEDS: Pantoprazole 40 mg EC Tab PO SCH (06:43)
[2016-06-22] MEDS ORDERED: Potassium Chloride 20 mEq ER Tab PO STA (08:21)
--- NOTE | 2016-06-22 08:34 | CP.PCM.PN ---
Subjective - Date & Time of Evaluation Date of Evaluation: 06/22/16 Time of Evaluation: 07:00 - Subjective Subjective: Stable in ICU. No CP or SOB. + pain in left groin area with large ecchymoses V/S stable. RSR PE: Lungs: clear Cor.: S1S2 Abd.: soft Ext.: no edema Neuro.: alert I/O= 2585/3100 Labs: H/H 12/38, K+= 3.7, Cr.= 0.6 ECG: RSR, PRWP V 1 - 3, evolving STTW changes CT abd/pelvis noted Objective - Vital Signs/Intake and Output Vital Signs (last 24 hours): Temp Pulse Resp BP Pulse Ox 98.2 F 84 19 132/66 92 L 06/22/16 04:00 06/22/16 06:40 06/22/16 06:40 06/22/16 06:00 06/22/16 06:40 Intake and Output: 06/22/16 06/22/16 06:59 18:59 Intake Total 500 Output Total 1050 Balance -550 - Medications Medications: Current Medications Acetaminophen (Tylenol 325mg Tab) 650 mg PO Q6H PRN PRN Reason: Fever >100.4 F Last Admin: 06/20/16 22:35 Dose: 650 mg Alprazolam (Xanax) 0.25 mg PO TID [facility] Stop: 06/27/16 18:01 Last Admin: 06/21/16 17:15 Dose: 0.25 mg Aspirin (Aspirin Chewable) 81 mg PO DAILY [facility] Last Admin: 06/21/16 09:36 Dose: 81 mg Atorvastatin Calcium (Lipitor) 80 mg PO DIN [facility] Last Admin: 06/21/16 17:15 Dose: 80 mg Clopidogrel Bisulfate (Plavix) 75 mg PO DAILY [facility] Last Admin: 06/21/16 09:34 Dose: 75 mg Docusate Sodium (Colace) 100 mg PO BID [facility] Last Admin: 06/21/16 17:16 Dose: 100 mg Losartan Potassium (Cozaar) 100 mg PO DAILY [facility] Last Admin: 06/21/16 09:34 Dose: 100 mg Metoprolol Tartrate (Lopressor) 50 mg PO BRKDIN [facility] Last Admin: 06/21/16 17:15 Dose: 50 mg Morphine Sulfate (Morphine) 2 mg IVP Q4H PRN PRN Reason: Pain, severe (8-10) Last Admin: 06/22/16 04:08 Dose: 2 mg Nicotine (Nicoderm Cq) 1 patch TD DAILY [facility] Last Admin: 06/21/16 09:36 Dose: 1 patch Ondansetron HCl (Zofran Inj) 4 mg IVP Q6H PRN PRN Reason: Nausea/Vomiting Pantoprazole Sodium (Protonix Ec Tab) 40 mg PO 0630 [facility] Last Admin: 06/22/16 06:43 Dose: 40 mg Zolpidem Tartrate (Ambien) 5 mg PO HS PRN PRN Reason: Insomnia - Labs Labs: 06/22/16 05:15 06/22/16 05:15 PT 10.4 Seconds (9.9-11.8) 06/20/16 13:32 INR 0.96 (0.93-1.08) 06/20/16 13:32 Assessment and Plan - Assessment and Plan (Free Text) Plan: Assessment: Bilateral shoulder and chest pain/STEMI 06/20/16 CAD/occluded LAD/MEJIA's x2 mid/distal LAD Left groin hematoma HBP HLD Smoker DJD/pre-op THR Diverticulitis Large Left Renal Cyst Plan: Abd. U/S OOB to chair. Tel bed. Analgesics for groin pain. Monitor H/H, left groin, I/O, labs, sats., etc. No Smoking D/W pt : requests kimo. patch Check Echo for LV fx. Continue: ASA, Plavix (min. 1 year), Statin, metoprolol, ARB Check Lipids
--- NOTE | 2016-06-22 09:34 | CARD ---
APPROVED REPORT EKG Measurement Heart [id number] CT 136P42 [id number] <Conclusion> Normal sinus rhythm Evolving anterior MD STTW changes with biphasic T waves V 4 - 6 Prolonged QTc
--- NOTE | 2016-06-22 10:49 | US ---
HISTORY: left renal cysts COMPARISON: Comparison is made to the previous CT of the abdomen and pelvis dated 06/20/2016 TECHNIQUE: Sonographic evaluation of the abdomen. FINDINGS: LIVER: Measures 15 cm. Diffuse increased echogenicity of the liver parenchyma. No mass. No intrahepatic bile duct dilatation. GALLBLADDER: Small echogenic foci seen in the gallbladder associated with comet tail artifact likely represent adenomyomatosis or small crystal positions. COMMON BILE DUCT: Measures 8.3 mm. No stones. No dilatation. PANCREAS: Unremarkable as visualized. No mass. No ductal dilatation. RIGHT KIDNEY: Measures 10.5 x 5.1 x 5.7cm. Normal echogenicity. No calculus, mass, or hydronephrosis. LEFT KIDNEY: Measures 12.5 x 6.6 x 5.7cm. Normal echogenicity. No calculus, mass, or hydronephrosis. There are 2 cystic lesions seen in the left kidney. The largest cyst measures 6.2 x 5.5 x 6.7 centimeter. The other lesion measures 4 x 3 x 3.5 centimeter. There are also 2 small cystic lesion at the mid to lower pole left kidney. SPLEEN: Normal in size and contour. No mass. AORTA: No aneurysmal dilatation. IVC: Unremarkable. OTHER FINDINGS: None. IMPRESSION: Small echogenic foci in the gallbladder likely represent adenomyomatosis or small crystals. No evidence of acute cholecystitis. Slightly dilated common bile duct measures 8 millimeter. Large cystic lesions in the left kidney.
--- NOTE | 2016-06-22 12:57 | PN ---
DATE: 06/22/2016 The patient is a 61-year-old, seen and examined, sitting in chair, seems to be comfortable. Complain ed of generalized aches and pains, stiffness, some discomfort in the left thigh where she developed h ematoma after cath. No chest pain. PHYSICAL EXAMINATION: VITAL SIGNS: She is afebrile, pulse 104, respirations 24, blood pressure 106/75. LUNGS: Bilateral fair airflow, no rhonchi or crackle. HEART: S1, S2 audible. No murmur. ABDOMEN: Soft, nontender, no rebound, no guarding. NEUROLOGIC: She is awake and alert, communicative. EXTREMITIES: She has a hematoma in the left groin that is receding. Distal pulses are intact. LABORATORY EXAMINATION: WBCs 11.8, hemoglobin 12.4, hematocrit 38, platelets 232. Chemistry: Sodiu m 139, potassium 3.7, chloride 106, CO2 27, BUN 12, creatinine 0.6, blood sugar of 89. ASSESSMENT: 1. Status post acute myocardial infarction, status post angioplasty left anterior descending at 3 sp ots. 2. Active smoker. 3. History of left hip severe osteoarthritis. The patient was in the process of being cleared for s urgery on 06/30, but that has to be postponed. 4. Bilateral shoulder discomfort. 5. Left groin hematoma post-procedure 6. History of diverticulosis. 7. Left renal cyst. 8. Large cystic lesion in the left kidney. PLAN: The patient will be maintained on aspirin, Plavix, statins. She is on nicotine patch. Contin ue Plavix. I will request for Dr. Otero to evaluate patient for left renal cyst. Gladys To MD cc: [phone] TT: 06/22/2016 12:56:56 Confirmation # [id number] Dictation # [id number]
[2016-06-23] MEDS: Pantoprazole 40 mg EC Tab PO SCH (06:01)
[2016-06-23 06:42] LABS: MAGNESIUM 1.9 mg/dL (1.7-2.2); PHOSPHOROUS 4.2 mg/dL (2.5-4.5)
--- NOTE | 2016-06-23 08:01 | CP.PCM.PN ---
Subjective - Date & Time of Evaluation Date of Evaluation: 06/23/16 Time of Evaluation: 07:00 - Subjective Subjective: Stable in ICU. No CP or SOB. Still pain in left groin area with movement, large ecchymosis V/S stable. RSR PE: Lungs: clear Cor.: S1S2 Abd.: soft Ext.: no edema Neuro.: alert I/O= 1120/1650 Labs: H/H 12 ECG: RSR, PRWP V 1 - 3, evolving STTW changes CT abd/pelvis noted Objective - Vital Signs/Intake and Output Vital Signs (last 24 hours): Temp Pulse Resp BP Pulse Ox 98.6 F 102 H 20 128/77 92 L 06/23/16 04:00 06/23/16 06:00 06/23/16 06:00 06/23/16 06:00 06/23/16 06:00 Intake and Output: 06/23/16 06/23/16 06:59 18:59 Intake Total 400 Output Total 1000 Balance -600 - Medications Medications: Current Medications Acetaminophen (Tylenol 325mg Tab) 650 mg PO Q6H PRN PRN Reason: Fever >100.4 F Last Admin: 06/20/16 22:35 Dose: 650 mg Alprazolam (Xanax) 0.25 mg PO TID [facility] Stop: 06/27/16 18:01 Last Admin: 06/22/16 17:44 Dose: 0.25 mg Aspirin (Aspirin Chewable) 81 mg PO DAILY [facility] Last Admin: 06/22/16 09:57 Dose: 81 mg Atorvastatin Calcium (Lipitor) 80 mg PO DIN [facility] Last Admin: 06/22/16 17:44 Dose: 80 mg Clopidogrel Bisulfate (Plavix) 75 mg PO DAILY [facility] Last Admin: 06/22/16 09:56 Dose: 75 mg Docusate Sodium (Colace) 100 mg PO BID [facility] Last Admin: 06/22/16 17:43 Dose: 100 mg Losartan Potassium (Cozaar) 100 mg PO DAILY [facility] Last Admin: 06/21/16 09:34 Dose: 100 mg Metoprolol Tartrate (Lopressor) 50 mg PO BRKDIN [facility] Last Admin: 06/22/16 17:44 Dose: 50 mg Morphine Sulfate (Morphine) 2 mg IVP Q4H PRN PRN Reason: Pain, severe (8-10) Last Admin: 06/22/16 19:39 Dose: 2 mg Nicotine (Nicoderm Cq) 1 patch TD DAILY [facility] Last Admin: 06/22/16 09:57 Dose: 1 patch Ondansetron HCl (Zofran Inj) 4 mg IVP Q6H PRN PRN Reason: Nausea/Vomiting Pantoprazole Sodium (Protonix Ec Tab) 40 mg PO 0630 [facility] Last Admin: 06/23/16 06:01 Dose: 40 mg Zolpidem Tartrate (Ambien) 5 mg PO HS PRN PRN Reason: Insomnia - Labs Labs: 06/22/16 05:15 06/22/16 05:15 PT 10.4 Seconds (9.9-11.8) 06/20/16 13:32 INR 0.96 (0.93-1.08) 06/20/16 13:32 Assessment and Plan - Assessment and Plan (Free Text) Plan: Assessment: Bilateral shoulder and chest pain/STEMI 06/20/16 CAD/occluded LAD/MEJIA's x2 mid/distal LAD Left groin hematoma HBP HLD Smoker DJD/pre-op THR Diverticulitis Large Left Renal Cyst Plan: OOB as jennifer. Tel bed. Analgesics for groin pain as needed. Monitor H/H, left groin, I/O, labs, sats., etc. No Smoking D/W pt. Check Echo for LV fx. Continue: ASA, Plavix (min. 1 year), Statin, metoprolol, ARB Uro eval.
--- NOTE | 2016-06-23 09:49 | CARD ---
APPROVED REPORT EKG Measurement Heart [id number] ID [id number] <Conclusion> Normal sinus rhythm Cannot rule out Inferior infarct, age undetermined T wave abnormality, consider anterolateral ischemia Abnormal ECG
--- NOTE | 2016-06-23 11:00 | CARD ---
APPROVED REPORT EXAM: Two-dimensional and M-mode echocardiogram with Doppler and color Doppler. Other Information Quality : AverageRhythm : INDICATION Chest Pain , Acute OK 2D DIMENSIONS Left Atrium (2D)3.6 (1.6-4.0cm)IVSd1.2 (0.7-1.1cm) LVDd4.4 (3.9-5.9cm)PWd1.1 (0.7-1.1cm) LVDs2.8 (2.5-4.0cm)FS (%) 35.4 % LVEF (%)65.0 (>50%) M-Mode DIMENSIONS Aortic Root3.00 (2.2-3.7cm)Aortic Cusp Exc.1.60 (1.5-2.0cm) Aortic Valve AoV Peak Jgorgbdr131.0cm/s Mitral Valve MV E Ohjmwumg58.3cm/sMV A Njarnsrt422.0cm/sMV ZES601yi E/A ratio0.6MVA (PHT)1.85cm2 TDI E/Lateral E'0.0E/Medial E'0.0 Tricuspid Valve TR Peak Sypbfjsq755um/sRAP [id number] Peak Gr.24mmHg [id number] LEFT VENTRICLE The left ventricle is normal size. There is normal left ventricular wall thickness. The left ventricular function is normal. The left ventricular ejection fraction is within the normal range. There is normal LV segmental wall motion. RIGHT VENTRICLE The right ventricle is normal size. ATRIA The left atrium size is normal. The right atrium size is normal. The interatrial septum is intact with no evidence for an atrial septal defect. AORTIC VALVE The aortic valve is mildly calcified. MITRAL VALVE The mitral valve is normal in structure. The mitral valve is moderately thickened. Mitral regurgitation is trace to mild. TRICUSPID VALVE The tricuspid valve is normal in structure. There is mild tricuspid regurgitation. PULMONIC VALVE The pulmonic valve is not well visualized. GREAT VESSELS The aortic root is normal in size. PERICARDIAL EFFUSION There is no pericardial effusion. <Conclusion> The left ventricle is normal size. There is normal left ventricular wall thickness. The left ventricular function is normal.
[2016-06-23] MEDS: Morphine 2 mg/ml ISec IVP PRN (13:14)
--- NOTE | 2016-06-23 15:00 | PN ---
DATE: 06/23/2016 The patient is a 61-year-old old female who was admitted as code heart, had wall KS and underwe nt LAD stenting at 3 spots and developed post-procedure left groin hematoma. PHYSICAL EXAMINATION: GENERAL: Complained of bilateral shoulder pain, left more than the right. Denies any chest pain, no shortness of breath. VITAL SIGNS: She is afebrile, pulse 77, respirations 20, blood pressure /41. LUNGS: Bilateral fair airflow, no rhonchi or crackle. She has diffusely decreased breath sounds at base posteriorly. HEART: S1, S2 audible. ABDOMEN: Soft, nontender, no rebound, no guarding. NEUROLOGIC: The patient is awake and alert, communicative, moves all extremities, except bilateral s houlders. Complained of limited eversion and extension. LABORATORY EXAMINATION: Her phosphorus is 4.2, her magnesium is 1.9. ASSESSMENT AND PLAN: 1. Status post acute myocardial infarction, anterior wall myocardial infarction, status post left an terior descending stenting. 2. Post-procedure left groin hematoma. 3. Bilateral shoulder pain, probably musculoskeletal. 4. Active smoker. 5. Hyperlipidemia. 6. Degenerative disk disease. 7. Left renal cyst. Awaiting urology evaluation. Dr. Lopez to evaluate patient. Order for MRI of the left shoulder s marcial she is complaining of intractable left shoulder pain. She can be transferred to remote [facility], wh ere she should be ambulated to prepare her for discharge in a.m. if she remains stable. Gladys To MD cc: [id number] TT: 06/23/2016 12:50:25 Confirmation # [id number] Dictation # [id number] en
--- NOTE | 2016-06-23 16:04 | CON ---
DATE: 06/23/2016 CHIEF COMPLAINT: Renal cyst. HISTORY OF PRESENT ILLNESS: The patient is a 61-year-old woman admitted with acute UT. She was comp laining of some back pain. A CAT scan was done. The CAT scan reported incidental finding of left re nal cyst measuring up to 5 cm. The patient had a followup ultrasound done the following day which wa s read as showing 2 cystic lesions in the left kidney, one measuring 6.2 x 6.7, the other 4 x 3. The y do not mention whether these are simple cysts and they do not mention any internal echoes. However , on the CAT scan nothing is mentioned of anything other than them being simple cysts. The CAT scan was not done with IV contrast. She had received extensive IV contrast because of her cardiac cathete rization that was done with regard to her acute myocardial infarction. Her creatinine is normal at 0 .6. PAST MEDICAL HISTORY: She reports no prior urologic history. She does have a history of hypertensio n, hyperlipidemia. Diverticulitis, for which she has had several admissions. SOCIAL HISTORY: She is a 40-45 pack year smoker. ALLERGIES: SHE HAS ALLERGIES TO HYDROMORPHONE AND ADHESIVES. MEDICATIONS: At home, she is on Norvasc, losartan, Zocor. FAMILY HISTORY: Noncontributory. REVIEW OF SYMPTOMS: Currently, no symptoms referable to the head, eyes, ears, nose and throat. No c hest pain. She does complain of back pain, bilateral. No psychiatric, dermatologic or GI symptoms. PHYSICAL EXAMINATION: VITAL SIGNS: Shows her to be afebrile, pulse 81, blood pressure 109/67. HEENT: Normocephalic, sclerae are clear. Conjunctivae not injected. ABDOMEN: No CVA pain. SKIN: No purpura or edema. NEUROLOGIC: Well oriented x 3. LABORATORY DATA: As mentioned, creatinine is 0.6, white count is 11,800. Coags are normal. Her tro ponins were 2.1 on admission. I discussed with the patient the findings on CAT scan and ultrasound. I will review them. The PACS system is not working so I cannot review them now, but I will review them with radiology. I told her to follow up in the office in 3-4 weeks. If there is any question, she will have a CAT scan done wi th IV contrast. I want to also give enough days to go by between the extensive contrast given to her for the cardiac catheterization before giving her any IV contrast; it is not urgent at this time. Andrew Otero MD cc: [id number] TT: 06/23/2016 16:03:38 Confirmation # [id number] Dictation # [id number] mn
[2016-06-23] MEDS ORDERED: Oxycodone/Acetaminophen 5/325 mg Tab PO PRN (16:53)
[2016-06-24] MEDS: Pantoprazole 40 mg EC Tab PO SCH (05:37)
[2016-06-24 08:32] VITALS: BP 109/79; RESP 17; TEMP 97.6; O2SAT 94
--- NOTE | 2016-06-24 10:52 | CON ---
DATE: 06/24/2016 REASON FOR CONSULTATION: Bilateral shoulder pain. HISTORY OF PRESENT ILLNESS: This is a 61-year-old female who was admitted for an acute myocardial in [facility] who presented with complaints of bilateral shoulder pain. The patient states that she has h ad shoulder pain for at least 4-6 months in both her shoulders. She denies any specific history of t rauma. She says the pain is not severe, but is kind of a dull ache. She says she feels that she has good strength in both her shoulders. She denies any numbness or tingling going down the arms. She says today she is not in a significant amount of pain. PHYSICAL EXAMINATION: On examination of bilateral shoulders, there is no obvious swelling or deformi ty. Her skin is intact. She has full forward flexion and abduction without any significant pain. S he has internal rotation in both shoulders to the upper lumbar and lower thoracic spines. She has 5/ 5 strength. Resisted abduction and forward flexion. She has negative Hawkin signs bilaterally. She has negative apprehension relocation test bilaterally. Neurovascularly she is intact distally in bi lateral upper extremities. There are no new imaging studies available for my review. IMPRESSION: Bilateral shoulder pain. PLAN: At this point, I would recommend some x-rays and possible MRIs of her shoulder. She says that she is possibly going to be discharged today and if this is the case, this could be done as an outpa tient. We will discuss this further with Dr. To. Reji Lopez MD cc: [id number] TT: 06/24/2016 10:51:10 Confirmation # [id number] Dictation # [id number] amanda
--- NOTE | 2016-06-24 11:44 | PN ---
DATE: 06/24/2016 SUBJECTIVE: The patient is seen sitting in bed on telemetry. She is comfortable at the present time . She has had no recurrent chest pain. She does have back pain and shoulder discomfort. She was se en by urology who recommends outpatient followup, and ultimately, a CT with contrast to evaluate her renal cysts. CURRENT MEDICATIONS: Include aspirin, Cozaar 100 mg daily, Lipitor 80 mg daily, metoprolol 50 mg b.i .d., Nicoderm patch, Plavix 75 mg daily, Protonix 40 mg daily, Xanax p.r.n. OBJECTIVE: GENERAL: She is a middle-aged woman who appears comfortable at the present time. VITAL SIGNS: Blood pressure is 110/80 with a pulse of 90 in sinus. Respirations are 16. She is afe brile. HEENT: No JVD. CHEST: Bilateral scattered rhonchi heard. HEART: PMI in normal position, and a systolic murmur is present in the left sternal border. ABDOMEN: Soft, nontender, normoactive bowel sounds. EXTREMITIES: No edema. DIAGNOSTIC DATA: No blood work pending from this morning. IMPRESSION: 1. Status post acute anterior myocardial infarction and percutaneous coronary intervention of left a nterior descending, clinically stable. 2. History of tobacco abuse. 3. Left renal cysts, workup in progress. 4. Bilateral shoulder pain - awaiting orthopedic evaluation. RECOMMENDATIONS: From a cardiac standpoint, she appears stable for discharge home at this time. Her current medications should be continued. The importance of uninterrupted aspirin and Plavix therapy for a year was discussed with her. She was encouraged to be certain to follow through with urology evaluation. Referral to cardiac rehabilitation will be made. Risk factor control was discussed with her. Outpatient followup has been arranged. Tomer Jeong MD cc: [id number] TT: 06/24/2016 11:43:35 Confirmation # [id number] Dictation # [id number] krupa
[2016-06-24 13:01] VITALS: PULSE 85
--- NOTE | 2016-06-24 15:11 | DS ---
The patient is 61 years old seen and examined. Still has shoulder pain, but chest pain and arm pain have significantly improved. No nausea, vomiting, no diarrhea, no fever, no chills. PHYSICAL EXAMINATION: VITAL SIGNS: She is afebrile, pulse 8____, respirations 17, blood pressure 109/79. LUNGS: Bilateral fair airflow. No rhonchi or crackle. HEART: S1, S2 audible. No murmur. ABDOMEN: Soft, nontender. No rebound, no guarding. She has had a resolving hematoma in the left gr oin. Followup CT of the abdomen and sonogram show cholelithiasis and also ____. LABORATORY EXAM: WBC is 11.8, hemoglobin 12.4, hematocrit 38, platelets 232. Chemistry: Sodium 139 , potassium 3.7, chloride 106, CO2 of 27, BUN 12, creatinine 0.6. ASSESSMENT AND PLAN: 1. Status post anterior wall myocardial infarction. 2. Hypertension. 3. Hyperlipidemia. 4. Chronic obstructive pulmonary disease. 5. Left groin hematoma post-procedure. PLAN: The patient is being discharged home on losartan 100 mg daily, aspirin 81 daily, Cozaar 100 mg daily, Lipitor 20 mg daily, metoprolol 25 twice a day, and she is strictly advised to quit smoking. She is already on Chantix. She will follow with Dr. Lopez as outpatient. She will get MRA of th e shoulder done later on after 6-8 weeks. Gladys To MD cc: [id number] TT: 06/24/2016 15:10:37 jn
== END 2016-06-24 14:13 | disposition home or self-care (01) | DRG 247 ==
LOC: ED 13:00 → CATH 13:48 → SDS 14:19 → CCU 15:07 → INTOOBSV 15:07 → OBSVTOIN 15:07 → 3RSO 06-23 14:02
PROVIDERS: ADMIT Internal Medicine; ATTEND Internal Medicine
PROC: 027035Z Dilation of Coronary Artery, One Artery with Two Drug-eluting Intraluminal Devices, Percutaneous Approach (ICD-10-PCS; principal; 2016-06-20)
PROC: 4A023N7 Measurement of Cardiac Sampling and Pressure, Left Heart, Percutaneous Approach (ICD-10-PCS; 2016-06-20)
PROC: B2051ZZ Plain Radiography of Left Heart using Low Osmolar Contrast (ICD-10-PCS; 2016-06-20)
PROC: B2011ZZ Plain Radiography of Multiple Coronary Arteries using Low Osmolar Contrast (ICD-10-PCS; 2016-06-20)
PROC: 3E033PZ Introduction of Platelet Inhibitor into Peripheral Vein, Percutaneous Approach (ICD-10-PCS; 2016-06-20)
PROC: 3E073KZ Introduction of Other Diagnostic Substance into Coronary Artery, Percutaneous Approach (ICD-10-PCS; 2016-06-20)
DX: I21.09 ST elevation (STEMI) myocardial infarction involving other coronary artery of anterior wall (principal); I97.630 Postprocedural hematoma of a circulatory system organ or structure following a cardiac catheterization; I95.89 Other hypotension; I25.10 Atherosclerotic heart disease of native coronary artery without angina pectoris; N28.1 Cyst of kidney, acquired; I10 Essential (primary) hypertension; E78.5 Hyperlipidemia, unspecified; M16.12 Unilateral primary osteoarthritis, left hip; J44.9 Chronic obstructive pulmonary disease, unspecified; F17.210 Nicotine dependence, cigarettes, uncomplicated; M25.511 Pain in right shoulder; M25.512 Pain in left shoulder; K57.90 Diverticulosis of intestine, part unspecified, without perforation or abscess without bleeding; M51.9 Unspecified thoracic, thoracolumbar and lumbosacral intervertebral disc disorder; Y84.0 Cardiac catheterization as the cause of abnormal reaction of the patient, or of later complication, without mention of misadventure at the time of the procedure

== ENCOUNTER 2017-01-20 06:27 | Day surgery (SDC) | payer BC ==
[2017-01-11 14:19] VITALS: BMI 32.5
[2017-01-20] MEDS ORDERED: Propofol 10 mg/ml Inj (20 ML) ONE ×3 (08:09→08:48)
[2017-01-20] MEDS ORDERED: Sodium Chloride 0.9% 1,000 ML IV SCH (09:15)
[2017-01-20 09:16] VITALS: RESP 14; TEMP 98
[2017-01-20 09:37] VITALS: PULSE 61
[2017-01-20 09:56] VITALS: BP 113/72; O2SAT 95
== END 2017-01-20 10:18 | disposition home or self-care (01) ==
LOC: ENDO 06:27
PROVIDERS: ATTEND Specialist
DX: D12.3 Benign neoplasm of transverse colon (principal); D12.2 Benign neoplasm of ascending colon; K62.1 Rectal polyp; K57.30 Diverticulosis of large intestine without perforation or abscess without bleeding; K64.4 Residual hemorrhoidal skin tags; K64.8 Other hemorrhoids; I10 Essential (primary) hypertension; I25.10 Atherosclerotic heart disease of native coronary artery without angina pectoris; F17.200 Nicotine dependence, unspecified, uncomplicated
CPT/HCPCS: 45380; 45385; 88305; J2704; J7040 ×2